=== PATIENT | male | born 1990 | race Two or more races ===

== ENCOUNTER 2018-08-15 12:01 | Emergency (ER) | payer OTHER ==
--- NOTE | 2018-08-15 13:07 | EDPHY ---
H & P Time Seen by Provider: 08/15/18 12:19 HPI/ROS: Clinical Impression: Left hand contusion Assessment/Plan: 27-year-old male presents to the emergency department with complaints of pain over the left MCP joint after his hand was hit against hard machinery at work. No open wounds, joint deformity, extensor tendon injury, or obvious joint effusion. No radiologic evidence of acute fracture. Neurovascular exam intact. Rice treatment discussed, patient reassured, orthopedic referral given , workman's Comp follow-up encouraged. Warning signs return to ER sooner outlined and discharge. Differential Dx: Bony contusion, dislocation, fracture ED Course: 1306: Preliminary review of x-ray shows no acute fracture, specifically over patient's point of pain on the left 3rd metacarpal and MCP joint. Chief Complaint: Left hand pain HPI: 27-year-old male presents to the emergency department with left hand pain. Patient states he was at work when a piece of equipment he was working under his hand back and caused him to hit his hand on another hard piece of metal. He is complaining of pain mostly on the dorsum of the left 3rd MCP joint. No difficulty with range of motion. No open wounds. No loss of sensation or weakness. 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 Neurological: No sensory loss or weakness. Physical Exam: General Appearance: Alert, oriented, appropriate for age, cooperative, NAD, well hydrated, non-toxic appearing, VSS, no hypoxia. Neurological: Alert and oriented x 3, normal sensation and strength of extremities Skin: Warm, dry, no rashes, no nodules on palpation. Musculoskeletal: Full range of motion of left hand. 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 Tender to palpation over the dorsum of the left MCP joint 3rd finger. No open wound. MDM: Patient was seen independently by established practice protocols. Secondary supervising physician at time of evaluation was Dr. Baer. Diagnosis: Left hand contusion. New, requires workup Summary: See assessment and plan for summary of ED visit Independent visualization of images, tracing, or specimens yes. Patient Progress stable. Smoking Status: Never smoked Constitutional: Initial Vital Signs Temperature (C) 36.6 C 11/15/18 12:05 Heart Rate 100 08/15/18 12:05 Respiratory Rate 16 08/15/18 12:05 Blood Pressure 146/82 H 08/15/18 12:05 O2 Sat (%) 96 08/15/18 12:05 O2 Delivery Mode Room Air Allergies/Adverse Reactions: No Known Allergies Allergy (Unverified 08/15/18 12:07) MDM/Departure - MDM Imaging: I viewed and interpreted images myself - Depart Disposition: Home, Routine, Self-Care Clinical Impression: Left hand pain Condition: Good Instructions: Arthralgia (ED) Additional Instructions: Preliminary review of your x-ray shows no evidence of acute fracture or dislocation. Please rest her hand, avoid activities that exacerbate pain. Rest and elevate the affected extremity as much as possible. Ice the affected areas 20 min on, 20 min off for the next several days. Please use Tylenol or ibuprofen over the counter in appropriate doses as outlined on your discharge papers. Take ibuprofen with food and a large glass of water. Follow-up with primary care pain persists. Return to ED for any other concerns. Referrals: NONE *PRIMARY CARE P,. [Primary Care Provider] - As per Instructions Max Patel DO [Doctor of Osteopathy] - As per Instructions
[2018-08-15 13:19] VITALS: BP 124/74
== END 2018-08-15 13:16 | disposition home or self-care (01) ==
DX: S60.222A Contusion of left hand, initial encounter (principal); W22.8XXA Striking against or struck by other objects, initial encounter; Y99.0 Civilian activity done for income or pay; Y92.9 Unspecified place or not applicable; Y93.9 Activity, unspecified